=== PATIENT | female | born 1995 | race Hispanic/Latino ===

== ENCOUNTER 2018-10-30 15:13 | Emergency (ER) | payer BC ==
[2018-10-30] MEDS ORDERED: Dexamethasone 10 MG/ML VIAL ONE (15:41)
== END 2018-10-30 16:14 | disposition home or self-care (01) ==
LOC: SCSER 15:13
DX: J30.2 Other seasonal allergic rhinitis (principal); Z79.899 Other long term (current) drug therapy
CPT/HCPCS: 96372; J1100